=== PATIENT | male | born 1970 | race Caucasian/White ===

== ENCOUNTER → 2017-05-03 | Outpatient (CLI) | payer BC ==
--- NOTE | 2017-05-04 07:54 | RADIOLOGY REPORT PS360 ---
[id number] VIEW, CHEST(2 VIEWS-NOT PORTABLE) HISTORY: LT SIDED RIB PAINleft-sided rib pain. Patient Age: 46 years: Male Ordering Physician: Blanca Wells APRN TECHNIQUE: 1. Ribs series: Both oblique views left RIBS along with AP chest above and below diaphragm 2. Chest PA and lateral upright COMPARISON :No previous chest films LEFT RIB SERIES: No convincing rib fracture. Slight undulation at the anterior eighth & seventh rib most compatible with the costochondral transition. CHEST PA AND LATERAL: Lungs are well expanded and clear with nothing definitely acute. Less than optimal inspiration yields some mild accentuation of markings at infrahilar regions bilaterally.. No pneumothorax. No pleural effusion. No chest wall abnormalities evident. T-spine intact. The heart is upper normal in size with mary and mediastinal structures satisfactory. IMPRESSION: 1. Left ribs intact no fracture nor lesion evident 2. Nothing definitely acute at the chest..No pneumothorax. Lungs clear with only question of perhaps minor bibasilar atelectasis.
== END ==
LOC: RAD 12:14
DX: R07.81 Pleurodynia (principal)